=== PATIENT | female | born 1985 | race American Indian/Alaskan Native ===

== ENCOUNTER 2018-06-14 12:33 | Emergency (ER) | payer OTHER ==
--- NOTE | 2018-06-14 13:26 | ED PDOC ---
Upper Extremity Pain/Injury Time Seen by Provider: 06/14/18 12:37 Chief Complaint (Nursing): Upper Extremity Problem/Injury Chief Complaint (Provider): Left Wrist Injury History Per: Patient History/Exam Limitations: no limitations Onset/Duration Of Symptoms: Days (x2) Current Symptoms Are (Timing): Still Present Additional Complaint(s): 33 year old female presents to the ED for evaluation of atraumatic left wrist pain and swelling. Patient states that two days ago she was doing burpees and pushups, along with various other activities during a gym session, and notes the symptoms began after that, progressively worsening. She reports taking Motrin with minimal relief, but the persistent pain prompted the visit. Right hand dominant. PMD: none provided Past Medical History Reviewed: Historical Data, Nursing Documentation, Vital Signs Vital Signs: Last Vital Signs Temp 98.6 F 06/14/18 12:49 Pulse 73 06/14/18 12:49 Resp 20 06/14/18 12:49 BP 104/63 06/14/18 12:49 Pulse Ox 99 06/14/18 12:49 - Medical History PMH: No Chronic Diseases - Surgical History Surgical History: No Surg Hx - Family History Family History: States: Unknown Family Hx - Social History Current smoker - smoking cessation education provided: No Alcohol: None Drugs: Denies - Home Medications Home Medications: Ambulatory Orders Medication Instructions Recorded Ibuprofen [Motrin] 600 mg PO Q6 #20 tab 06/14/18 oxyCODONE/Acetaminophen [Percocet 1 ea PO Q6 PRN #10 tab 06/14/18 5/325 mg Tab] - Allergies Allergies/Adverse Reactions: Allergies Allergy/AdvReac Type Severity Reaction Status Date / Time No Known Allergies Allergy Verified 06/14/18 12:49 Review of Systems ROS Statement: Except As Marked, All Systems Reviewed And Found Negative Musculoskeletal: Positive for: Other (atraumatic left wrist pain and swelling) Physical Exam - Reviewed Nursing Documentation Reviewed: Yes Vital Signs Reviewed: Yes - Physical Exam Appears: Positive for: No Acute Distress Head Exam: Positive for: ATRAUMATIC, NORMOCEPHALIC Skin: Positive for: Normal Color, Warm, Dry Cardiovascular/Chest: Positive for: Regular Rate, Rhythm Respiratory: Positive for: Normal Breath Sounds. Negative for: Accessory Muscle Use, Respiratory Distress Pulses-Radial (L): 2+ Pulses-Radial (R): 2+ Extremity: Positive for: Normal ROM (of left wrist and all digits), Tenderness ( tenderness, mild edema, with no ecchymosis or erythema over radial aspect of left wrist extending up 2nd metacarpal), Other (distal sensation intact) Neurologic/Psych: Positive for: Alert, Oriented (x3). Negative for: Motor/ Sensory Deficits - ECG O2 Sat by Pulse Oximetry: 99 (RA) Pulse Ox Interpretation: Normal Medical Decision Making Medical Decision Making: Time: 1303 Initial Impression: Wrist pain, tendonitis Initial Plan: --Toradol 30 mg IM --XR left hand --XR left wrist 1338 Wrist XR Impression: Unremarkable left wrist radiograph. 1339 Hand XR Impression: Unremarkable left hand radiograph. note: After receiving IM injection of Toradol, Pt developed vasovagal response and began to feel ligth headed, nauseous and sweaty. Pt moved to bed and placed in trendelenburg position. Symptoms quickly resolvd. Pt placed on monitoring coordinator. Vitals stable. FS: 95 EKG: interpreted and cleared by ED MD. NSR Pt monitored in ED after incident. Placed in wrist splint. RICE therapy advised. 1415: Repeat vitals stable. Pt without any complaints. tolerating PO Scribe Attestation: Documented by Mehnaz Camejo, acting as a scribe for Tiffanie Cox PA-C. Provider Scribe Attestation: All medical record entries made by the Scribe were at my direction and personally dictated by me. I have reviewed the chart and agree that the record accurately reflects my personal performance of the history, physical exam, medical decision making, and the department course for this patient. I have also personally directed, reviewed, and agree with the discharge instructions and disposition. Disposition - Clinical Impression Clinical Impression: Wrist pain, left, Left wrist tendonitis, Vasovagal near syncope - Patient ED Disposition Is Patient to be Admitted: No - Disposition Referrals: Yash Burk MD [Medical Doctor] - Disposition: Routine/Home Disposition Time: 14:24 Condition: STABLE Prescriptions: Ibuprofen [Motrin] 600 mg PO Q6 #20 tab oxyCODONE/Acetaminophen [Percocet 5/325 mg Tab] 1 ea PO Q6 PRN #10 tab PRN Reason: Pain, Severe (8-10) Instructions: Tendonitis (DC), Vasovagal Response (DC) Forms: [employer] ([place]), [facility] ED School/Work Excuse
[2018-06-14] MEDS ORDERED: Sodium Chloride 0.9% 1,000 ML IV STA (13:38)
--- NOTE | 2018-06-14 13:40 | RAD ---
PROCEDURE: Left Hand Radiographs. HISTORY: pain COMPARISON: None. FINDINGS: BONES: No acute fracture or destructive bony lesion identified. JOINTS: Normal. No osteoarthritic changes. SOFT TISSUES: Normal. OTHER FINDINGS: None. IMPRESSION: Unremarkable left hand radiographs.
--- NOTE | 2018-06-14 13:40 | RAD ---
Date of service: 06/14/2018 PROCEDURE: Left Wrist Radiographs. HISTORY: pain COMPARISON: None. FINDINGS: BONES: No acute fracture or destructive bony lesion identified. JOINTS: Normal. No dislocation. SOFT TISSUES: Normal. OTHER FINDINGS: None. IMPRESSION: Unremarkable left wrist radiographs.
[2018-06-14 14:17] VITALS: RESP 18; TEMP 98
[2018-06-14 14:31] VITALS: BP 112/71; PULSE 71; O2SAT 100
--- NOTE | 2018-06-15 20:06 | CARD ---
APPROVED REPORT Date of service: 06/14/2018 EKG Measurement Heart [id number] <Conclusion> Normal sinus rhythm Normal ECG
== END 2018-06-14 14:28 | disposition home or self-care (01) ==
LOC: H.ER 12:33
DX: M65.849 Other synovitis and tenosynovitis, unspecified hand (principal); R55 Syncope and collapse
CPT/HCPCS: 29125; 73110; 73130; 82948; 93005; 96372; 99285; J1885; J7030